=== PATIENT | female | born 1970 | race Caucasian/White ===

== ENCOUNTER → 2020-10-19 | Day surgery (SDC) | payer OTHER ==
[~2020-10-19] VITALS: Ht 170.2 cm; Wt 79.8 kg
[~2020-10-19] MED LIST: NEXIUM20 MG PO; PHENTERMINE H37.5 M1 PO; VITAMIN B-1000 MCG/1 PO; VITAMIN D250 MCG PO
== END | disposition home or self-care (01) ==
LOC: OR 05:52
DX: Z12.11 Encounter for screening for malignant neoplasm of colon (principal); K21.9 Gastro-esophageal reflux disease without esophagitis; E78.5 Hyperlipidemia, unspecified; Z82.49 Family history of ischemic heart disease and other diseases of the circulatory system; Z88.8 Allergy status to other drugs, medicaments and biological substances; Z79.899 Other long term (current) drug therapy
CPT/HCPCS: J2001; J2704; J7120

== ENCOUNTER → 2020-10-28 | Outpatient (CLI) | payer OTHER | LOC: MAMO 09:30 | DX: Z12.31 Encounter for screening mammogram for malignant neoplasm of breast (principal); Z78.0 Asymptomatic menopausal state | CPT/HCPCS: 77063; 77067 ==

== ENCOUNTER → 2021-10-31 | Outpatient (CLI) | payer OTHER | LOC: MAMO 09:00 | DX: Z12.31 Encounter for screening mammogram for malignant neoplasm of breast (principal) | CPT/HCPCS: 77063; 77067 ==